=== PATIENT | male | born 2000 | race Caucasian/White ===

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

== ENCOUNTER 2018-04-19 17:21 | Emergency (ER) | payer OTHER ==
[~2018-04-19] VITALS: Ht 193 cm; Wt 113.4 kg
[~2018-04-19 17:21] MED LIST changes: +ACHD5005 PO; -HYDR-3812 PO
--- NOTE | 2018-04-19 18:04 | ED Lower Extremity ---
General Chief Complaint: Lower Extremity Stated Complaint: WC - L LEG MCL PAIN Nursing Triage Note: PT PRESENTS TO ER WITH COMPLAINT OF LEFT KNEE PAIN. PT STATES HE TWISTED KNEE AFTER WALKING AROUND A DESK. STATES HE HAS TORN HIS MCL BEFORE AND THE PAIN FEELS SIMILAR. Source: patient Exam Limitations: no limitations History of Present Illness Date Seen by Provider: Apr 19, 2018 Time Seen by Provider: 17:35 Initial Comments Patient is a 17 year old male who presents to the emergency room with reports of left knee pain. He states that he twisted his left knee at work after walking around a desk. he ahs had injury and repair to a MCL on the left knee in the past and he reports the pain is very similar. He ambulated to the exam room. Onset: just prior to arrival Pain/Injury Location: left knee Method of Injury: twisted Modifying Factors: Worse With Movement Allergies and Home Medications Allergies Coded Allergies: No Known Drug Allergies (Unverified , 04/15/15) Home Medications No Active Prescriptions or Reported Meds Patient Home Medication List Home Medication List Reviewed: Yes Review of Systems Constitutional: see HPI; No chills, No fever Musculoskeletal: see HPI, joint pain (left knee) All Other Systems Reviewed Negative Unless Noted: Yes Past Dmzooek-Cwkpma-Vjhxxz Hx Past Med/Social Hx: Reviewed Nursing Past Med/Soc Hx Patient Social History Alcohol Use: Occasionally Uses Recreational Drug Use: No Smoking Status: Never a Smoker 2nd Hand Smoke Exposure: No Recent Foreign Travel: No Contact w/Someone Who Travel: No Recent Infectious Disease Expo: No Recent Hopitalizations: No Ebola Symptoms: Denies Symptoms Listed Immunizations Up To Date Tetanus Booster (TDap): Less than 5yrs PED Vaccines UTD: Yes Seasonal Allergies Seasonal Allergies: No Past Medical History Surgeries: Yes (Left hand fx) Orthopedic Respiratory: No Cardiac: No Neurological: No Reproductive Disorders: No Gastrointestinal: No Musculoskeletal: Yes Fractures Endocrine: No Cancer: No Psychosocial: No Integumentary: No Blood Disorders: No Family Medical History Reviewed Nursing Family Hx No Pertinent Family Hx Physical Exam Vital Signs Vital Signs - First Documented 04/19/18 04/19/18 17:37 18:49 Temp 98.0 Pulse 100 Resp 20 B/P (MAP) 154/85 Pulse Ox 100 O2 Delivery Room Air Capillary Refill : Height, Weight, BMI Height: 6'4.00" Weight: 250lbs. oz. 113.712313mb; 28.12 BMI Method:Stated General Appearance: WD/WN, no apparent distress Cardiovascular: normal peripheral pulses, regular rate, rhythm, no edema, no gallop, no JVD, no murmur Respiratory: chest non-tender, lungs clear, normal breath sounds, no respiratory distress, no accessory muscle use Knees: left knee normal inspection, left knee normal range of motion, left knee no evidence of injury, left knee pain Neurologic/Tendon: normal sensation, normal motor functions, normal tendon functions Neurologic/Psychiatric: alert, normal mood/affect, oriented x 3 Progress/Results/Core Measures Results/Orders My Orders Orders - LUZ MARIA KOTHARI Knee, Left, 3 Views (04/19/18 17:41) Vital Signs/I&O 04/19/18 04/19/18 17:37 18:49 Temp 98.0 98.0 Pulse 100 100 Resp 20 20 B/P (MAP) 154/85 Pulse Ox 100 O2 Delivery Room Air Room Air Progress Progress Note : Time: 18:01 Progress Note I have seen and evaluated the patient. I have informed him of normal imaging studies. I have placed him in a knee immobilizer and on crutches until he follow up ortho to prevent further injury. He agrees with plans for care, follow up, and return precautions were given. Diagnostic Imaging Diagonstic Imaging: Xray Plain Films/CT/US/NM/MRI: knee Comments NAME: JOSE RAIN Jeffrey MED REC#: [id number] PT STATUS: REG ER : 2000 PHYSICIAN: LUZ MARIA KOTHARIP ADMIT DATE: 04/19/18/ER Draft Date of Exam:04/19/18 KNEE, LEFT, 3 VIEWS EXAM: KNEE, LEFT, 3 VIEWS INDICATION: Left knee pain. COMPARISON: None FINDINGS: There is no fracture or malalignment. Soft tissue shadows are unremarkable. No left ankle joint effusion. IMPRESSION: Negative left knee radiographs. Dictated on workstation # [id number] Dict: 04/19/18 1808 Trans: 04/19/18 [address] [facility] [id number] Interpreted by: CHLOÉ LAMBERT MD Electronically signed by: Reviewed: Reviewed by Me Departure Impression Primary Impression: Sprain of left knee Disposition: 01 HOME, SELF-CARE Condition: Stable/Unchanged Departure-Patient Inst. Decision time for Depature: 18:01 Referrals: GAETANO TIDWELL MD,ROSETTE Decker MD (PCP/Family) Primary Care Physician LUI FUENTES MD,RHONDA SHANE,JAJA JORDAN,GUILLAUME TOBIAS,HAILEY Byrd MD Patient Instructions: Knee Sprain (DC) Add. Discharge Instructions: You may use ibuprofen and Tylenol as directed by the bottle for pain relief. Wear the knee immobilizer follow-up with one of the doctors. You may use ice to the knee at 20 minute intervals. Use crutches as needed. Follow-up with one of the orthopedic surgeons that are listed within 1 week for recheck. Follow-up with primary care provider within 1 week for recheck. Return back to the emergency room for any worsening needed. All discharge instructions reviewed with patient and/or family. Voiced understanding. Scripts No Active Prescriptions or Reported Meds LUZ MARIA KOTHARI Apr 19, 2018 18:03
--- NOTE | 2018-04-19 18:11 | Diagnostic Imaging Report ---
EXAM: KNEE, LEFT, 3 VIEWS INDICATION: Left knee pain. COMPARISON: None FINDINGS: There is no fracture or malalignment. Soft tissue shadows are unremarkable. No left ankle joint effusion. IMPRESSION: Negative left knee radiographs. Dictated by: Dictated on workstation # [id number]
== END 2018-04-19 18:49 | disposition home or self-care (01) ==
LOC: EDUNIT# 17:21 → ER 17:22
DX: S83.92XA Sprain of unspecified site of left knee, initial encounter (principal); X50.0XXA Overexertion from strenuous movement or load, initial encounter
CPT/HCPCS: 73562

== ENCOUNTER 2023-06-06 06:27 | Day surgery (SDC) | payer BC, OTHER ==
[~2023-06-06] VITALS: Ht 185.5 cm; Wt 132.5 kg
[2023-06-06] VITALS (9 sets, daily range): BP systolic 119–143; BP diastolic 62–86
[2023-06-06] MEDS ORDERED: ONDANSETRON INJECTION 4 MG/2 ML (SDV) IVP ONE (07:15)
[2023-06-06] MEDS ORDERED: fentaNYL INJECTION 100 MCG/2 ML VIAL IVP ONE (07:15)
[2023-06-06 07:20] LABS: BASOPHILS % (AUTO) 0 % (0-10); EOSINOPHILS # (AUTO) 0.1 10^3/uL (0.0-0.3); EOSINOPHILS % (AUTO) 0 % (0-10); HEMATOCRIT 48 % (40-54); HEMOGLOBIN 16.2 g/dL (13.3-17.7); LYMPHOCYTES # (AUTO) 0.3 10^3/uL (1.0-4.0); LYMPHOCYTES % (AUTO) 1 % (12-44); MEAN CORPUSCULAR HEMOGLOBIN 29 pg (25-34); MEAN CORPUSCULAR HGB CONC 34 g/dL (32-36); MEAN CORPUSCULAR VOLUME 87 fL (80-99); MEAN PLATELET VOLUME 10.7 fL (9.0-12.2); MONOCYTES # (AUTO) 0.7 10^3/uL (0.0-1.0); MONOCYTES % (AUTO) 3 % (0-12); NEUTROPHILS # (AUTO) 21.7 10^3/uL (1.8-7.8); NEUTROPHILS % (AUTO) 95 % (42-75); PLATELET COUNT 229 10^3/uL (130-400); WHITE BLOOD COUNT 22.9 10^3/uL (4.3-11.0)
--- NOTE | 2023-06-06 07:20 | ED Abdominal Pain ---
General Chief Complaint: Abdominal/GI Problems Stated Complaint: RT SIDE PX Nursing Triage Note: ARRIVED VIA AMB TO ROOM 06 WITH COMPLAINTS OF RIGHT LOWER ABD PAIN. VOMITING STARTED YESTERDAY THEN PAIN THRUOUT THE NIGHT. Source of Information: Patient Exam Limitations: No Limitations History of Present Illness Date Seen by Provider: Jun 06, 2023 Time Seen by Provider: 06:47 Initial Comments This 22-year-old young man is presenting to the emergency room by private vehicle with concerns about intense right lower quadrant pain radiating to other areas of the abdomen. Pain abruptly started yesterday evening and became severe this morning. He has additionally been vomiting. It is painful to move, walk, and breathe. He retains his appendix. He has noted no urinary symptoms. He has no history of ureteral stones. He denies fever. He is in notable distress during my exam from significant pain. Allergies and Home Medications Allergies Coded Allergies: No Known Drug Allergies (Unverified , 04/15/15) Patient Home Medication List Home Medication List Reviewed: Yes Review of Systems Review of Systems Constitutional: no symptoms reported EENTM: No Symptoms Reported Respiratory: See HPI Cardiovascular: No Symptoms Reported Gastrointestinal: See HPI Genitourinary: No Symptoms Reported Musculoskeletal: no symptoms reported Skin: no symptoms reported Psychiatric/Neurological: No Symptoms Reported Endocrine: No Symptoms Reported Hematologic/Lymphatic: No Symptoms Reported Past Oszzncb-Fmfyzt-Kodtre Hx Patient Social History Tobacco Use?: No Substance use?: No Alcohol Use?: No Immunizations Up To Date Tetanus Booster (TDap): Less than 5yrs PED Vaccines UTD: Yes Seasonal Allergies Seasonal Allergies: No Past Medical History Surgeries: Yes (Left hand fx) Orthopedic Respiratory: No Cardiac: No Neurological: No Reproductive Disorders: No Gastrointestinal: No Musculoskeletal: Yes Fractures Endocrine: No HEENT: No Cancer: No Psychosocial: No Integumentary: No Blood Disorders: No Family Medical History No Pertinent Family Hx Physical Exam Vital Signs Capillary Refill : Height/Weight/BMI Height: 6'4.00" Weight: 250lbs. oz. [id number]; 34.00 BMI Method:Stated General Appearance: WD/WN, mild distress, obese HEENT: normal ENT inspection Neck: normal inspection Respiratory: lungs clear, normal breath sounds, no respiratory distress Cardiovascular: no edema, no murmur, tachycardia Gastrointestinal: normal bowel sounds, soft, tenderness (Moderate to severe tenderness in the right lower quadrant. More moderate tenderness in the other areas of the abdomen.) Extremities: normal inspection, no pedal edema Neurologic/Psychiatric: no motor/sensory deficits, alert, normal mood/affect, oriented x 3 Skin: normal color, warm/dry Progress/Results/Core Measures Results/Orders Lab Results Laboratory Tests Test 06/06/23 07:00 Range/Units White Blood Count 22.9 H 4.3-11.0 10^3/uL Red Blood Count 5.51 4.30-5.52 10^6/uL Hemoglobin 16.2 13.3-17.7 g/dL Hematocrit 48 40-54 % Mean Corpuscular Volume 87 80-99 fL Mean Corpuscular Hemoglobin 29 25-34 pg Mean Corpuscular Hemoglobin Concent 34 32-36 g/dL Red Cell Distribution Width 13.0 10.0-14.5 % Platelet Count 229 130-400 10^3/uL Mean Platelet Volume 10.7 9.0-12.2 fL Immature Granulocyte % (Auto) 0 % Neutrophils (%) (Auto) 95 H 42-75 % Lymphocytes (%) (Auto) 1 L 12-44 % Monocytes (%) (Auto) 3 0-12 % Eosinophils (%) (Auto) 0 0-10 % Basophils (%) (Auto) 0 0-10 % Neutrophils # (Auto) 21.7 H 1.8-7.8 10^3/uL Lymphocytes # (Auto) 0.3 L 1.0-4.0 10^3/uL Monocytes # (Auto) 0.7 0.0-1.0 10^3/uL Eosinophils # (Auto) 0.1 0.0-0.3 10^3/uL Basophils # (Auto) 0.0 0.0-0.1 10^3/uL Immature Granulocyte # (Auto) 0.1 0.0-0.1 10^3/uL Neutrophils % (Manual) 91 % Monocytes % (Manual) 1 % Metamyelocytes % 1 % Band Neutrophils 7 % Blood Morphology Comment NORMAL Sodium Level 139 135-145 MMOL/L Potassium Level 3.6 3.6-5.0 MMOL/L Chloride Level 103 98-107 MMOL/L Carbon Dioxide Level 20 L 21-32 MMOL/L Anion Gap 16 H 5-14 MMOL/L Blood Urea Nitrogen 11 7-18 MG/DL Creatinine 1.21 0.60-1.30 MG/DL Estimat Glomerular Filtration Rate 86 BUN/Creatinine Ratio 9 Glucose Level 183 H 70-105 MG/DL Calcium Level 10.0 8.5-10.1 MG/DL Corrected Calcium 8.5-10.1 MG/DL Total Bilirubin 2.0 H 0.1-1.0 MG/DL Aspartate Amino Transf (AST/SGOT) 23 5-34 U/L Alanine Aminotransferase (ALT/SGPT) 17 0-55 U/L Alkaline Phosphatase 64 40-136 U/L Total Protein 8.7 H 6.4-8.2 GM/DL Albumin 4.6 H 3.2-4.5 GM/DL My Orders Orders - PETRA EMERSON MD Ua Culture If Indicated (06/06/23 06:47) Cbc And Automated Diff (06/06/23 07:07) Comprehensive Metabolic Panel (06/06/23 07:07) Fentanyl Injection (Fentanyl Injection (06/06/23 07:15) Ondansetron Injection (Ondansetron Inj (06/06/23 07:15) Manual Differential (06/06/23 07:00) Promethazine Injection (Promethazine I (06/06/23 08:00) Morphine Injection (Morphine Injection (06/06/23 08:09) Ed Iv/Invasive Line Start (06/06/23 08:09) Lactated Ringers 1,000 Ml (Lactated Ring (06/06/23 08:15) Ekg Tracing (06/06/23 08:23) Morphine Injection (Morphine Injection (06/06/23 08:24) Ct Abdomen/Pelvis W (06/06/23 08:24) Iohexol Injection (Omnipaque 350 Mg/Ml 1 (06/06/23 08:45) Received Contrast (Hold Metformin- Contr (06/06/23 08:45) Ns (Ivpb) 100 Ml (Sodium Chloride 0.9% 1 (06/06/23 08:45) Scopolamine Patch (Scopolamine Patch) (06/06/23 10:15) Lactated Ringers 1,000 Ml (Lactated Ring (06/06/23 10:15) Medications Given in ED Current Medications Medications Dose Ordered Sig/Rita Route Start Time Stop Time Status Last Admin Dose Admin Iohexol 100 ml ONCE ONCE IV 06/06/23 08:45 06/06/23 08:46 DC 06/06/23 08:53 100 ML Lactated Ringer's 1,000 ml @ 0 mls/hr Q0M ONCE IV 06/06/23 08:15 06/06/23 08:16 DC 06/06/23 08:13 1,000 MLS/HR Lactated Ringer's 1,000 ml @ 0 mls/hr Q0M PRN IV 06/06/23 10:15 06/06/23 13:49 0 MLS/HR Morphine Sulfate ONCE ONCE IVP 06/06/23 10:15 06/06/23 10:23 DC 06/06/23 14:54 5 MG Promethazine HCl 25 mg ONCE ONCE IVP 06/06/23 08:00 06/06/23 08:01 DC 06/06/23 07:59 25 MG Scopolamine 1.5 mg ONCE ONCE TD 06/06/23 10:15 06/06/23 10:16 DC 06/06/23 10:20 1.5 MG Sodium Chloride 100 ml ONCE ONCE IV 06/06/23 08:45 06/06/23 08:46 DC 06/06/23 08:53 80 ML Progress Progress Note : Time: 10:00 Progress Note Patient was initially suspected of having a ureteral stone based on the intensity of his pain. He was treated with fentanyl and morphine. A second dose of morphine has been administered for uncontrolled pain. He was treated with Zofran and Phenergan for nausea. Nausea still present and will be treated with scopolamine patch. CT of the abdomen pelvis with contrast was obtained. By my interpretation there was acute appendicitis with enlarged appendix, stranding of nearby tissue, and scant fluid collection along the appendix. Radiologist's report was reviewed. By report there was no evidence of abscess or perforation. Dr. Leon, surgeon on-call, has been contacted. He presented to the emergency room to personally evaluate the patient. He anticipates taking the patient to the OR within the next few hours. Patient has been hydrated with a liter of fluid. We will continue to monitor his symptoms and give him supportive care. There was a brief note of a narrow complex tachycardia on the monitor by nursing staff. Unfortunately, this was not captured for my review or documentation. Patient has no history of arrhythmias or tachycardias. I did notify Dr. Murrieta, director digital sales on-call. He is not consulted on this case but was made aware of the issue should something recur during the course of his care. Labs were obtained, reviewed, and interpreted by me in their entirety. CBC was notable for leukocytosis of 22.9. CMP was notable for glucose of 183 and bilirubin of 2.0. Clinical significance of these labs is not likely significant. There were no other clinically relevant abnormalities on the CMP. Initial ECG Impression Date: Jun 06, 2023 Initial ECG Impression Time: 08:25 Initial ECG Rate: 112 Initial ECG Rhythm: S.Tach Comment Sinus tachycardia with no ST elevation or depression. No definite abnormal intervals or axis deviation. Diagnostic Imaging Diagonstic Imaging: CT Plain Films/CT/US/NM/MRI: abdomen, pelvis Comments NAME: JOSE RAIN Jeffrey MED REC#: [id number] [place]US[place] [facility] [place] 2000 PHYSICIAN: PETRA EMERSON MD ADMIT DATE: 06/06/23 Signed Date of Exam:06/06/23 CT ABDOMEN/PELVIS W PROCEDURE: CT abdomen and pelvis with contrast. TECHNIQUE: Multiple contiguous axial images were obtained through the abdomen and pelvis after administration of intravenous contrast. Auto Exposure Controls were utilized during the CT exam to meet ALARA standards for radiation dose reduction. All CT scans use one or more of the following dose optimizing techniques: automated exposure control, MA and/or KvP adjustment based on patient size and exam type or iterative reconstruction. INDICATION: Abdominal pain and elevated white blood cell count. No prior studies are available for comparison. Lung bases are clear. Liver and gallbladder are unremarkable. There is no biliary duct dilatation. Pancreas and spleen are unremarkable. No adrenal mass is identified. Kidneys are unremarkable. Aorta is nonaneurysmal. The appendix is dilated and thick-walled. There is periappendiceal inflammation as well as some trace fluid in the right lower quadrant and features are consistent with acute appendicitis. No abscess formation or bowel obstruction is identified. The bladder and prostate are unremarkable. There is a small fat-containing umbilical hernia. IMPRESSION: Features consistent with acute appendicitis. No abscess formation or bowel obstruction is identified. Dictated by: Dictated on workstation # [id number] Dict: 06/06/23 0856 Trans: 06/06/231642 [facility] [id number] Interpreted by: KANDICE MEAD MD Electronically signed by: KANDICE MEAD MD 06/06/231642 Departure Communication (Admissions) Time/Spoke to Admitting Phy: 09:22 Dr. Leon Impression Primary Impression: Acute appendicitis Qualified Codes: K35.200 - Acute appendicitis with generalized peritonitis, without perforation or abscess Additional Impression: Nausea & vomiting Qualified Codes: R11.2 - Nausea with vomiting, unspecified Disposition: ADMITTED INPATIENT Condition: Stable Admissions Decision to Admit Reason: Admit from ER (General) Decision to Admit/Date: Jun 06, 2023 Time/Decision to Admit Time: 09:22 Departure-Patient Inst. Referrals: NO,LOCAL PHYSICIAN (PCP/Family) Primary Care Physician PETRA EMERSON MD Jun 06, 2023 07:20
[2023-06-06 07:23] LABS: ALBUMIN 4.6 GM/DL (3.2-4.5); CHLORIDE 103 MMOL/L (98-107); POTASSIUM 3.6 MMOL/L (3.6-5.0); SODIUM 139 MMOL/L (135-145)
[2023-06-06 07:26] LABS: GLUCOSE 183 MG/DL (70-105); TOTAL PROTEIN 8.7 GM/DL (6.4-8.2)
[2023-06-06 07:27] LABS: CARBON DIOXIDE 20 MMOL/L (21-32)
[2023-06-06 07:29] LABS: ALKALINE PHOSPHATASE 64 U/L (40-136); CREATININE SERUM 1.21 MG/DL (0.60-1.30); GFR ESTIMATED 86
[2023-06-06 07:30] LABS: BUN/CREATININE RATIO 9
[2023-06-06 07:32] LABS: ALANINE AMINOTRANSFERASE 17 U/L (0-55)
[2023-06-06] MEDS ORDERED: PROMETHAZINE INJ 25 MG/ML VIAL IVP ONE (08:00)
[2023-06-06 08:02] LABS: BAND NEUTROPHILS 7 %; MONOCYTES % (MANUAL) 1 %; NEUTROPHILS % (MANUAL) 91 %
[2023-06-06 08:03] LABS: METAMYELOCYTES % 1 %; RBC MORPH NORMAL
[2023-06-06] MEDS ORDERED: morphine INJ 10 MG/ML 1ML (SYR OR VIAL) IVP STA ×2 (08:09→08:24)
[2023-06-06] MEDS ORDERED: LACTATED RINGERS 1,000 ML 1,000 ML IV ONE (08:15)
[2023-06-06] MEDS ORDERED: NS 100 ML (IVPB) BAG IV ONE (08:45)
[2023-06-06] MEDS ORDERED: IOHEXOL 350 MG/ML 100 ML (OMNIPAQUE 350) VIAL IV ONE (08:45)
[2023-06-06] MEDS ORDERED: HOLD METFORMIN - RECEIVED CONTRAST 20 ML VIAL IV SCH (08:45)
--- NOTE | 2023-06-06 09:12 | Diagnostic Imaging Report ---
PROCEDURE: CT abdomen and pelvis with contrast. TECHNIQUE: Multiple contiguous axial images were obtained through the abdomen and pelvis after administration of intravenous contrast. Auto Exposure Controls were utilized during the CT exam to meet ALARA standards for radiation dose reduction. All CT scans use one or more of the following dose optimizing techniques: automated exposure control, MA and/or KvP adjustment based on patient size and exam type or iterative reconstruction. INDICATION: Abdominal pain and elevated white blood cell count. No prior studies are available for comparison. Lung bases are clear. Liver and gallbladder are unremarkable. There is no biliary duct dilatation. Pancreas and spleen are unremarkable. No adrenal mass is identified. Kidneys are unremarkable. Aorta is nonaneurysmal. The appendix is dilated and thick-walled. There is periappendiceal inflammation as well as some trace fluid in the right lower quadrant and features are consistent with acute appendicitis. No abscess formation or bowel obstruction is identified. The bladder and prostate are unremarkable. There is a small fat-containing umbilical hernia. IMPRESSION: Features consistent with acute appendicitis. No abscess formation or bowel obstruction is identified. Dictated by: Dictated on workstation # [id number]
[2023-06-06] MEDS ORDERED: MIDAZOLAM INJ 2 MG/2 ML VIAL ONE (10:08)
[2023-06-06] MEDS ORDERED: dexAMETHasone INJ 10 MG/ML 1 ML VIAL ONE (10:08)
[2023-06-06] MEDS ORDERED: ONDANSETRON INJECTION 4 MG/2 ML (SDV) ONE (10:08)
[2023-06-06] MEDS ORDERED: LIDOCAINE PF 2% 5 ML VIAL ONE (10:08)
[2023-06-06] MEDS ORDERED: ROCURONIUM 50 MG/5 ML VIAL IV ONE (10:08)
[2023-06-06] MEDS ORDERED: fentaNYL INJECTION 100 MCG/2 ML VIAL ONE ×2 (10:08→14:05)
[2023-06-06] MEDS ORDERED: proPOfol INJECTION 200 MG/20 ML VIAL IV ONE (10:08)
[2023-06-06] MEDS ORDERED: MEPERIDINE INJ 50 MG/ML VIAL IVP ONE (10:15)
[2023-06-06] MEDS ORDERED: morphine INJ 10 MG/ML 1ML (SYR OR VIAL) IVP ONE (10:15)
[2023-06-06] MEDS ORDERED: HYDROmorphone INJECTION 2 MG/ML VIAL IV ONE (10:15)
[2023-06-06] MEDS ORDERED: SCOPOLAMINE 1.5 MG PATCH TD ONE (10:15)
[2023-06-06] MEDS ORDERED: ONDANSETRON INJECTION 4 MG/2 ML (SDV) IVP PRN (10:15)
[2023-06-06] MEDS ORDERED: LACTATED RINGERS 1,000 ML 1,000 ML IV PRN (10:15)
[2023-06-06] MEDS: LACTATED RINGERS 1,000 ML 1,000 ML IV PRN ×3 (10:22→13:49)
--- NOTE | 2023-06-06 10:40 | Consultation - Surgery ---
History of Present Illness History of Present Illness Patient Consulted On(jaclyn/time) 06/06/23 10:35 Time Seen by Provider: 09:31 History of Present Illness Surgery asked to consult regarding RLQ pain. HPI per ED: This 22-year-old young man is presenting to the emergency room by private vehicle with concerns about intense right lower quadrant pain radiating to other areas of the abdomen. Pain abruptly started yesterday evening and became severe this morning. He has additionally been vomiting. It is painful to move, walk, and breathe. He retains his appendix. He has noted no urinary symptoms. He has no history of ureteral stones. He denies fever. He is in notable distress during my exam from significant pain. When I saw the pt this am he looked to be in at least moderate distress, sitting at bedside possibly tachypnic. His stated he has been vomiting since the beginning of the week and complained of "rock in his stomach". The pain started yesterday and is 10 out of 10. He has received multiple doses of Morphine and they are barely touching the pain. It is a sharp stabbing pain, worse with movement and lying still helps a little. Allergies and Home Medications Allergies Coded Allergies: No Known Drug Allergies (Unverified , 04/15/15) Patient Home Medication List Home Medication List Reviewed: Yes Past Nqavtux-Kjyfip-Gpbptu Hx Patient Social History Smoking Status: Never a Smoker 2nd Hand Smoke Exposure: No Recent Hopitalizations: No Alcohol Use?: No Immunizations Up To Date Tetanus Booster (TDap): Less than 5yrs PED Vaccines UTD: Yes Seasonal Allergies Seasonal Allergies: No Surgeries History of Surgeries: Yes (Left hand fx) Surgeries: Orthopedic Respiratory History of Respiratory Disorde: No Cardiovascular History of Cardiac Disorders: No Neurological History of Neurological Disord: No Reproductive System Hx Reproductive Disorders: No Genitourinary History of Genitourinary Disor: No Gastrointestinal History of Gastrointestinal Di: No Musculoskeletal History of Musculoskeletal Dis: Yes Musculoskeletal Disorders: Fractures Endocrine History of Endocrine Disorders: No HEENT History of HEENT Disorders: No Loss of Vision: Denies Hearing Impairment: Denies Cancer History of Cancer: No Psychosocial History of Psychiatric Problem: No Integumentary History of Skin or Integumenta: No Blood Transfusions History of Blood Disorders: No Family Medical History Significant Family History: Other Conditions/Hx (Pt states his parents do not have DM, HTN, or CAD) Review of Systems-General Constitutional: No diaphoresis; malaise, weakness EENTM: No blurred vision, No double vision, No mouth swelling Respiratory: No cough, No dyspnea on exertion, No short of breath Cardiovascular: No chest pain, No palpitations Gastrointestinal: abdominal pain, diarrhea; No hematemesis; loss of appetite, nausea, vomiting Genitourinary: No dysuria, No frequency, No hematuria Musculoskeletal: No joint pain, No joint swelling, No muscle pain Skin: No change in color, No change in hair/nails Psychiatric/Neurological: Denies Anxiety, Denies Depressed, Denies Seizure, Denies Tremors Physical Exam-General Problems Physical Exam Vital Signs Capillary Refill : General Appearance: moderate distress, obese Eyes: Bilateral Eye PERRL, Bilateral Eye EOMI HEENT: pharynx normal; No scleral icterus (R), No scleral icterus (L) Neck: non-tender Respiratory: lungs clear, normal breath sounds, no respiratory distress, no accessory muscle use Cardiovascular: no murmur, tachycardia Gastrointestinal: soft, no organomegaly, guarding, rebound, tenderness (RUQ), hernia (small umbilical) Rectal: deferred Back: no CVA tenderness, no vertebral tenderness Extremities: no pedal edema, no calf tenderness 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, alert Skin: normal color, warm/dry Lymphatic: no adenopathy (neck, axilla or groin) Data Review Labs Laboratory Tests 06/06/23 07:00: White Blood Count 22.9H, Red Blood Count 5.51, Hemoglobin 16.2, Hematocrit 48, Mean Corpuscular Volume 87, Mean Corpuscular Hemoglobin 29, Mean Corpuscular Hemoglobin Concent 34, Red Cell Distribution Width 13.0, Platelet Count 229, Mean Platelet Volume 10.7, Immature Granulocyte % (Auto) 0, Neutrophils (%) (Auto) 95H, Lymphocytes (%) (Auto) 1L, Monocytes (%) (Auto) 3, Eosinophils (%) (Auto) 0, Basophils (%) (Auto) 0, Neutrophils # (Auto) 21.7H, Lymphocytes # (Auto) 0.3L, Monocytes # (Auto) 0.7, Eosinophils # (Auto) 0.1, Basophils # (Auto) 0.0, Immature Granulocyte # (Auto) 0.1, Neutrophils % (Manual) 91, Monocytes % (Manual) 1, Metamyelocytes % 1, Band Neutrophils 7, Blood Morphology Comment NORMAL, Sodium Level 139, Potassium Level 3.6, Chloride Level 103, Carbon Dioxide Level 20L, Anion Gap 16H, Blood Urea Nitrogen 11, Creatinine 1.21, Estimat Glomerular Filtration Rate 86, BUN/Creatinine Ratio 9, Glucose Le brian 183H, Calcium Level 10.0, Corrected Calcium , Total Bilirubin 2.0H, Aspartate Amino Transf (AST/SGOT) 23, Alanine Aminotransferase (ALT/SGPT) 17, Alkaline Phosphatase 64, Total Protein 8.7H, Albumin 4.6H Radiology Date of Exam:06/06/23 CT ABDOMEN/PELVIS W PROCEDURE: CT abdomen and pelvis with contrast. TECHNIQUE: Multiple contiguous axial images were obtained through the abdomen and pelvis after administration of intravenous contrast. Auto Exposure Controls were utilized during the CT exam to meet ALARA standards for radiation dose reduction. All CT scans use one or more of the following dose optimizing techniques: automated exposure control, MA and/or KvP adjustment based on patient size and exam type or iterative reconstruction. INDICATION: Abdominal pain and elevated white blood cell count. No prior studies are available for comparison. Lung bases are clear. Liver and gallbladder are unremarkable. There is no biliary duct dilatation. Pancreas and spleen are unremarkable. No adrenal mass is identified. Kidneys are unremarkable. Aorta is nonaneurysmal. The appendix is dilated and thick-walled. There is periappendiceal inflammation as well as some trace fluid in the right lower quadrant and features are consistent with acute appendicitis. No abscess formation or bowel obstruction is identified. The bladder and prostate are unremarkable. There is a small fat-containing umbilical hernia. IMPRESSION: Features consistent with acute appendicitis. No abscess formation or bowel obstruction is identified. Dictated on workstation # [id number] Dict: 06/06/23 0856 Trans: 06/06/23 0911 CV [id number] Interpreted by: KANDICE MEAD MD Assessment/Plan Assessment/Plan Assessment/Plan Acute Appendicitis I spoke with ER physician and reviewed the CT images myself; the appendix is very dilated and there appears to be a small amount of fluid near it. Pt will need surgery to remove this, I did give him the option of trying ABX and waiting but he stated he was in too much pain. He will get IV fluids, pain medications, anti-emetics as needed and IV ABX just prior to surgery start. I discussed the procedure with pt and his ; Laparoscopic appendectomy, possible open. We went over risks and complications not limited to pain, bleeding, infection, scar, damage to bowel and need for further procedure. All questions answered to their satisfaction. Will get consent and plan for surgery soon. YEIMI RUTLEDGE DO Jun 06, 2023 10:40
[2023-06-06 12:24] LABS: CLARITY,URINE CLEAR; COLOR,URINE YELLOW; GLUCOSE, URINE (UA) NEGATIVE (NEGATIVE); KETONES,URINE 1+ (NEGATIVE); NITRITE,URINE NEGATIVE (NEGATIVE); PH,URINE 5.5 (5-9); PROTEIN,URINE 2+ (NEGATIVE)
[2023-06-06 12:25] LABS: BACTERIA,URINE TRACE /HPF; BILIRUBIN,URINE 1+ (NEGATIVE); LEUKOCYTE ESTERASE ,URINE NEGATIVE (NEGATIVE); RBC,URINE RARE /HPF; SQUAMOUS EPITHELIAL CELL,UR 0-2 /HPF; WBC,URINE RARE /HPF
[2023-06-06] MEDS ORDERED: ceFAZolin INJECTION 3,000 MG in NS (IVPB) 100 ML 100 ML IV ONE (12:45)
[2023-06-06] MEDS ORDERED: LIDOCAINE 2% w/EPI 1:100,000 20 ML VIAL ONE (12:50)
[2023-06-06] MEDS ORDERED: LIDOCAINE 2% w/EPI 1:100,000 20 ML VIAL INJ ONE (13:32)
[2023-06-06] MEDS ORDERED: GLYCOPYRROLATE INJ 0.2 MG/ML 2 ML VIAL ONE (14:08)
[2023-06-06] MEDS ORDERED: NEOSTIGMINE 1 MG/1ML 10 ML VIAL ONE (14:08)
[2023-06-06] MEDS ORDERED: morphine INJ 10 MG/ML 1ML (SYR OR VIAL) ONE (14:47)
--- NOTE | 2023-06-06 14:51 | Progress Note-Post Operative ---
Post-Operative Progess Note Surgeon (s)/Sports Medicine Coordinator (s) Surgeon YEIMI RUTLEDGE DO Sports Medicine Coordinator: RITIKA Cloud Pre-Operative Diagnosis Acute Appendicitis Post-Operative Diagnosis Ruptured Appendicitis Intra-abdominal abscess Procedure & Operative Findings Date of Procedure 06/06/23 Procedure Performed/Findings Laparoscopic Appendectomy Washout of Abdomen and placement of drain COMPLICATIONS: None. INDICATIONS: The patient is a 22 year old male who has been having right lower quadrant abdominal pain. Patient's exam consistent with appendicitis. I discussed risk and benefits of laparoscopic appendectomy and all indicated procedures with the possibility being a normal appendix. The patient understands the risks and benefits and wishes to proceed. Consent was signed on the chart. DESCRIPTION OF PROCEDURE: The patient was taken to the operating suite, prepped and draped in a sterile fashion. Timeout was performed. Local anesthetic was infiltrated just above the umbilicus and 11-blade scalpel was used to make a skin incision. Cautery was used to dissect down to the fascia and scored. Kochers were used to grasp and elevate it and the abdomen was then entered. An 0 Vicryl was placed in a [id number] fashion for closure at the end of the case. The balloon trocar was inserted into the abdomen and pneumoperitoneum was achieved. Under direct visualization of the laparoscope, a 5 mm trocar was placed in the suprapubic region and a 5 mm trocar was placed in the left lower quadrant. Immediately upon entering noted purulent fluid, nothing feculent. Appendix was located,it was inflamed and thickened but did not appear to have a perforation. Started coming across the mesoappendix with the Ligasure until I was down at the base of the appendix. Once at the base an Endo-DEEP 2.5 stapler was then fired and the appendix was then placed in an Endobag and removed through the 12 mm trocar site. I then ran the small bowel to make sure there was not a Meckel's diverticulitis. I looked at the Sigmoid colon, the gallbladder and the stomach. I could not find any other source for the purulent fluid. The fluid was all over the abdomen and I suctioned out appx 500ml of fluid. In fact, almost all of the peritoneum was inflammed. I then irrigated with almost 4L of normal saline and suctioned it out. I elected to place a 19French gale drain through the 12mm trocar port and pulled the end out of the suprapubic incision. It was sutured in place with 3-0 Nylon. The abdomen was then desufflated and the trocars were removed. The 0 Vicryl placed at the beginning of the case was then tied closing the 12 mm fascial defect. The skin was then closed using 4-0 Monocryl in a subcuticular fashion. The abdomen was then washed and dried and Skin Affix was placed over the incisions. Drain sponge placed around the drain. The patient tolerated the procedure well without any complications and was taken to the recovery room in stable condition. Anesthesia Type GET Estimated Blood Loss Estimated blood loss (mL): scant Specimens/Packing Specimens Removed YEIMI Desai DO Jun 06, 2023 14:51
[2023-06-06] MEDS ORDERED: PIPERACILLIN/Tazobactam 4.5 GM in NS (IVPB) 100 ML 100 ML IV ONE (16:00)
[2023-06-06] MEDS: LACTATED RINGERS 1,000 ML 1,000 ML IV SCH ×2 (16:15→23:58)
[2023-06-06] MEDS: HYDROcodone/ACETAMINOPHEN 10/325 TABLET PO PRN (19:44)
[2023-06-06] MEDS: IBUPROFEN 800 MG TABLET PO PRN (22:13)
[2023-06-06] MEDS: PIPERACILLIN/Tazobactam 4.5 GM in NS (IVPB) 100 ML 100 ML IV SCH (22:17)
[2023-06-07 05:00] VITALS: BP 122/57
[2023-06-07] MEDS: PIPERACILLIN/Tazobactam 4.5 GM in NS (IVPB) 100 ML 100 ML IV SCH ×3 (05:19→21:48)
[2023-06-07] MEDS: LACTATED RINGERS 1,000 ML 1,000 ML IV SCH ×4 (05:19→23:48)
[2023-06-07 07:35] VITALS: BP 128/58
[2023-06-07] MEDS: HYDROcodone/ACETAMINOPHEN 10/325 TABLET PO PRN ×2 (08:34→17:43)
[2023-06-07] MEDS: PANTOPRAZOLE INJECTION 40 MG VIAL IVP SCH (08:34)
--- NOTE | 2023-06-07 10:43 | Progress Note - Surgery ---
STEPHANIE VELA 06/07/23 1043: Subjective Date Seen by a Provider: Jun 07, 2023 Time Seen by a Provider: 10:45 Subjective/Events-last exam Michael Santiago is feeling good this morning. He did have an episode where he felt feverish last night but it quickly passed and he hasn't felt feverish since. His pain he rates a 1/10 and well controlled on oral pain medications. He does have sharp pain when he coughs that causes sharp 6/10 pain. He is tolerating clears well and has had a cup of chicken broth and 3 cups of water with no nausea, vomiting, nor abdominal distention. He has been able to walk around his room and to the bathroom without any difficulty. He does have some persistent burning with urination that had not decreased in intensity since having the catheter removed. His ROSANNE drains have drained 110ml of serous fluid since surgery. He has not had a bowel movement nor passed gas since surgery. His incision look good with no surrounding erythema. Review of Systems General: No Chills, No Night Sweats, No Fatigue HEENT: No Head Aches, No Visual Changes, No Eye Pain Pulmonary: Dyspnea (due to some pain with deep inspiration ); No Cough Cardiovascular: No: Chest Pain, Palpitations Gastrointestinal: Abdominal Pain (over the incisionas and in the RLQ); No: Nausea, Vomiting Genitourinary: Dysuria, Frequency Objective Exam Vital Signs Date Time Temp Pulse Resp B/P (MAP) Pulse Ox O2 Delivery O2 Flow Rate FiO2 06/07/23 08:00 97 Room Air 2.00 06/07/23 07:35 36.4 93 18 128/58 (81) 95 Room Air 06/07/23 05:00 36.6 84 19 122/57 (78) 97 Nasal Cannula 06/06/23 23:58 36.9 06/06/23 23:56 36.9 111 19 119/71 (87) 97 Nasal Cannula 06/06/23 22:13 38.3 06/06/23 20:02 38.3 115 19 135/62 (86) 97 Nasal Cannula 2.00 06/06/23 19:30 97 Room Air 2.00 06/06/23 16:00 37.6 102 19 137/65 (89) 97 Room Air 06/06/23 15:53 97 Nasal Cannula 2.00 06/06/23 15:20 Nasal Cannula 2.00 06/06/23 15:10 37.3 27 128/78 (95) 96 Nasal Cannula 2.00 06/06/23 15:05 Nasal Cannula 2.00 06/06/23 15:00 28 143/80 (101) 99 OxyMask 10.00 06/06/23 14:50 28 141/80 (100) 98 OxyMask 10.00 06/06/23 14:50 OxyMask 10.00 06/06/23 14:40 28 139/86 (103) 100 OxyMask 10.00 06/06/23 14:35 OxyMask 10.00 06/06/23 14:30 22 134/80 (98) 100 OxyMask 10.00 06/06/23 14:20 36.3 21 127/72 (90) 100 OxyMask 10.00 06/06/23 14:20 OxyMask 10.00 06/06/23 12:54 123 16 133/94 96 Room Air I & O 06/07/23 07:00 Intake Total 3920 ml Output Total 610 ml Balance 3310 ml Capillary Refill : General Appearance: No Apparent Distress, WD/WN HEENT: PERRL/EOMI, Moist Mucous Membranes; No Pharyngeal Erythema Neck: Non Tender, Supple Respiratory: Lungs Clear, No Accessory Muscle Use, No Respiratory Distress Cardiovascular: Regular Rate, Rhythm, No Edema, No Murmur Peripheral Pulses: 3+ Dorsalis Pedis (R), 3+ Left Dors-Pedis (L), 3+ Radial Pulses (R), 3+ Radial Pulses (L) Gastrointestinal: normal bowel sounds, soft, tenderness (in the RLQ and soreness around incision sites. ) Extremity: No Pedal Edema Neurologic/Psychiatric: Alert, Oriented x3 Skin: Normal Color, Warm/Dry Lymphatic: No Adenopathy (cervical or supraclavicular) Results Lab Laboratory Tests 06/06/23 12:00: Urine Color YELLOW, Urine Clarity CLEAR, Urine pH 5.5, Urine Specific [place] 1.010L, Urine Protein 2+H, Urine Glucose (UA) NEGATIVE, Urine Ketones 1+H, Urine Nitrite NEGATIVE, Urine Bilirubin 1+H, Urine Urobilinogen 1.0, Urine Leukocyte Esterase NEGATIVE, Urine RBC (Auto) TRACEH, Urine RBC RARE, Urine WBC RARE, Urine Squamous Epithelial Cells 0-2, Urine Crystals NONE, Urine Bacteria TRACE, Urine Casts NONE, Urine Mucus SMALLH, Urine Culture Indicated NO Assessment/Plan Assessment/Plan Assessment/Plan Acute Appendicitis s/p laparascopic appendectomy POD#1 Dysuria Plan: Advance diet as tolerated Continue pain medications as needed encourage ambulation as tolerated YEIMI LEON DO 06/07/23 1414: Subjective Time Seen by a Provider: 12:54 Subjective/Events-last exam Pt seen and examined, looks much better than yesterday. He states he feels much better. Review of Systems Pulmonary: Dyspnea (due to some pain with deep inspiration ); No Cough Gastrointestinal: Abdominal Pain (over the incisionas and in the RLQ); No: Nausea, Vomiting Genitourinary: Dysuria, Frequency Objective Exam General Appearance: No Apparent Distress, WD/WN HEENT: PERRL/EOMI, Moist Mucous Membranes Respiratory: Lungs Clear, Normal Breath Sounds, No Accessory Muscle Use, No Respiratory Distress Cardiovascular: Regular Rate, Rhythm, No Murmur Gastrointestinal: soft, tenderness (in the RLQ and soreness around incision sites. ), other (Inc C/D/I, ROSANNE drain with serosanguinous drainage) Extremity: No Pedal Edema Neurologic/Psychiatric: Alert, Oriented x3 Skin: Normal Color, Warm/Dry Assessment/Plan Assessment/Plan Assessment/Plan S/P laparascopic appendectomy POD#1 for ruptured Appendicitis Dysuria Advance diet as tolerated, Continue pain medications as needed, encourage ambulation as tolerated Will send pt home with oral pain meds and oral ABX, f/u in my office in one week Supervisory-Addendum Brief Verification & Attestation Participated in pt care: history, MDM, physical Personally performed: exam, history, MDM, supervision of care Care discussed with: Medical Student Procedures: n/a Verification and Attestation of Medical Student E/M Service A medical student performed and documented this service. I then reviewed and verified all information documented by the medical student and made modifications to such information, when appropriate. I personally performed a physical exam, medical decision making and then discussed any differences between the notes and made revisions as necessary to create one note. Yeimi Leon , 06/07/23 , 14:14 STEPHANIE VELA Jun 07, 2023 10:43 YEIMI LEON DO Jun 07, 2023 14:14
[2023-06-07 11:21] VITALS: BP 131/69
[2023-06-07] MEDS: ONDANSETRON INJECTION 4 MG/2 ML (SDV) IVP PRN ×2 (13:39→19:46)
--- NOTE | 2023-06-07 14:10 | Anesthesia-General Post-Op ---
General Patient Condition Mental Status/LOC: Same as Preop Cardiovascular: Satisfactory Nausea/Vomiting: Absent Respiratory: Satisfactory Pain: Controlled Complications: Absent Post Op Complications Complications None Follow Up Care/Instructions Patient Instructions None needed. Anesthesia/Patient Condition Patient Condition Patient is doing well, no complaints, stable vital signs, no apparent adverse anesthesia problems. No complications reported per nursing. SLAVA SINGLETARY CRNA Jun 07, 2023 14:10
[2023-06-07] MEDS ORDERED: ACHYD1T PO (14:15)
[2023-06-07] MEDS ORDERED: AMOX-355 PO (14:15)
--- NOTE | 2023-06-07 14:17 | Discharge Inst-Surgical ---
Discharge Inst-Surgical Depart Medication/Instructions New, Converted or Re-Newed RX: Transmitted to Pharmacy Patient Instructions Follow up Appt: Make appointment for 1 week. [phone] Instructions: No lifting greater than 20 pounds. No strenuous activity. May shower in 24 hours, no tub bath or soaking. Use incentive spirometer at home as directed. No Smoking Skin/Wound Care: May remove bandages in am. You need to leave the Dermabond on incision it will fall off on it's own. Symptoms to Report: Appetite Changes, Extremity Discoloration, Numbness/Tingling, Swelling Increased, Bleeding Excessive, Eyesight Changes, Pain Increased, Urine Color Change, Constipation(Persistent), Fever over 101 degree F, Pain/Pressure in chest, Urinating Difficulty, Cough Up/Vomit Blood, Heart Beat Irreg/Pounding, Pain/Pressure in jaw, Cramps in feet or legs, Lightheadedness, Pain/Pressure in shoulder, Diarrhea(Persistent), Memory Changes Suddenly, Questions/Concerns, Weight gain consecutive days, Dizziness/Fainting, Nausea/Vomiting, Shortness of Breath, Weight gain over 2 pounds If questions or concerns contact your physician Or seek help at emergency department. Activity Activity as Tolerated: Yes Activity Instructions: Avoid Stress to Incision Driving Instructions: No Driving/Refer to Dr. Rodriguez Discharge Diet: No Restrictions Diet After 24 Hours: Clear Liquid if Nauseous If Any Problems/Questions/Issu: Contact Your Physician, Go to Emergency Room Skin/Wound Care Infection Signs and Symptoms: Increased Redness, Foul Odor of Wound, Increased Drainage, Skin Itchy or Has a Rash, Increased Swelling, Temperature Above 101 F Wound Care Comment: Care of ROSANNE drain Bathing Instructions: Shower Stitches/Analia/Dermabond Dis: Dermabond YIEMI RUTLEDGE DO Jun 07, 2023 14:16
[2023-06-07 15:30] VITALS: BP 130/70
[2023-06-07 19:56] VITALS: BP 136/74
[2023-06-07] MEDS ORDERED: PROMETHAZINE INJ 25 MG/ML VIAL IVP ONE (21:15)
[2023-06-07 23:27] VITALS: BP 114/77
[2023-06-08] MEDS: ONDANSETRON INJECTION 4 MG/2 ML (SDV) IVP PRN ×4 (01:38→19:16)
[2023-06-08 03:28] VITALS: BP 140/82
[2023-06-08] MEDS: HYDROcodone/ACETAMINOPHEN 10/325 TABLET PO PRN ×3 (03:41→13:13)
[2023-06-08 05:48] LABS: BASOPHILS % (AUTO) 0 % (0-10); EOSINOPHILS % (AUTO) 0 % (0-10); HEMATOCRIT 49 % (40-54); HEMOGLOBIN 16.4 g/dL (13.3-17.7); LYMPHOCYTES # (AUTO) 1.2 10^3/uL (1.0-4.0); LYMPHOCYTES % (AUTO) 7 % (12-44); MEAN CORPUSCULAR HEMOGLOBIN 29 pg (25-34); MEAN CORPUSCULAR HGB CONC 34 g/dL (32-36); MEAN CORPUSCULAR VOLUME 87 fL (80-99); MEAN PLATELET VOLUME 10.8 fL (9.0-12.2); MONOCYTES # (AUTO) 0.8 10^3/uL (0.0-1.0); MONOCYTES % (AUTO) 5 % (0-12); NEUTROPHILS # (AUTO) 14.3 10^3/uL (1.8-7.8); NEUTROPHILS % (AUTO) 87 % (42-75); PLATELET COUNT 221 10^3/uL (130-400); WHITE BLOOD COUNT 16.4 10^3/uL (4.3-11.0)
[2023-06-08] MEDS: PIPERACILLIN/Tazobactam 4.5 GM in NS (IVPB) 100 ML 100 ML IV SCH ×3 (05:52→21:34)
[2023-06-08] MEDS: LACTATED RINGERS 1,000 ML 1,000 ML IV SCH ×4 (05:52→20:55)
[2023-06-08 06:10] LABS: ALBUMIN 3.3 GM/DL (3.2-4.5); BILIRUBIN,TOTAL 1.3 MG/DL (0.1-1.0); CALCIUM 9.1 MG/DL (8.5-10.1); CREATININE SERUM 0.96 MG/DL (0.60-1.30); POTASSIUM 3.5 MMOL/L (3.6-5.0); TOTAL PROTEIN 7.1 GM/DL (6.4-8.2)
[2023-06-08 07:29] VITALS: BP 116/76
[2023-06-08] MEDS: PANTOPRAZOLE INJECTION 40 MG VIAL IVP SCH (08:52)
[2023-06-08 12:23] VITALS: BP 120/78
--- NOTE | 2023-06-08 13:46 | Progress Note - Surgery ---
Subjective Time Seen by a Provider: 13:37 Subjective/Events-last exam Pt seen and examined, events of last night noted. Pt was kept overnight because he began having intractable nauesea and vomiting; not controlled with Zofran. He states he had an episode of emesis today and that whenever he moves he gets nauseous and vomits. He only has minimal abdominal pain and is not really able to eat; however, he can "nibble on crackers feels better and small sips". Review of Systems General: Fatigue Pulmonary: No Dyspnea, No Cough Cardiovascular: No: Chest Pain, Palpitations Gastrointestinal: Nausea, Vomiting, Abdominal Pain (very minimal) Objective Exam Vital Signs Date Time Temp Pulse Resp B/P (MAP) Pulse Ox O2 Delivery O2 Flow Rate FiO2 06/08/23 12:23 36.8 100 18 120/78 (92) 97 Room Air 06/08/23 08:00 97 Room Air 2.00 06/08/23 07:29 36.5 105 16 116/76 (89) 95 Room Air 06/08/23 03:28 37.0 98 16 140/82 (101) 97 Room Air 06/07/23 23:27 37.1 92 20 114/77 (89) 97 Room Air 06/07/23 20:00 97 Room Air 2.00 06/07/23 19:56 36.7 89 20 136/74 (94) 95 Room Air 06/07/23 15:30 37.0 116 20 130/70 (90) 94 Room Air I & O 06/08/23 07:00 Intake Total 1840 ml Output Total 325 ml Balance 1515 ml Capillary Refill : General Appearance: No Apparent Distress, WD/WN HEENT: PERRL/EOMI, Moist Mucous Membranes Respiratory: Lungs Clear, Normal Breath Sounds, No Accessory Muscle Use, No Respiratory Distress Cardiovascular: Regular Rate, Rhythm, No Murmur Peripheral Pulses: 3+ Dorsalis Pedis (R), 3+ Left Dors-Pedis (L), 3+ Radial Pulses (R), 3+ Radial Pulses (L) Gastrointestinal: soft, tenderness (in the RLQ and soreness around incision sites. ), other (Inc C/D/I, ROSANNE drain with scant sanguinous drainage) Extremity: No Pedal Edema Neurologic/Psychiatric: Alert, Oriented x3 Results Lab Laboratory Tests 06/08/23 05:41: White Blood Count 16.4H, Red Blood Count 5.59H, Hemoglobin 16.4, Hematocrit 49, Mean Corpuscular Volume 87, Mean Corpuscular Hemoglobin 29, Mean Corpuscular Hemoglobin Concent 34, Red Cell Distribution Width 13.3, Platelet Count 221, Mean Platelet Volume 10.8, Immature Granulocyte % (Auto) 0, Neutrophils (%) (Auto) 87H, Lymphocytes (%) (Auto) 7L, Monocytes (%) (Auto) 5, Eosinophils (%) (Auto) 0, Basophils (%) (Auto) 0, Neutrophils # (Auto) 14.3H, Lymphocytes # (Auto) 1.2, Monocytes # (Auto) 0.8, Eosinophils # (Auto) 0.0, Basophils # (Auto) 0.0, Immature Granulocyte # (Auto) 0.1, Sodium Level 136, Potassium Level 3.5L, Chloride Level 103, Carbon Dioxide Level 19L, Anion Gap 14, Blood Urea Nitrogen 14, Creatinine 0.96, Estimat Glomerular Filtration Rate 113, BUN/Creatinine Ratio 15, Glucose Level 136H, Calcium Level 9.1, Corrected Calcium 9.7, Total Bilirubin 1.3H, Aspartate Amino Transf (AST/SGOT) 21, Alanine Aminotransferase (ALT/SGPT) 13, Alkaline Phosphatase 47, Total Protein 7.1, Albumin 3.3 Assessment/Plan Assessment/Plan Assessment/Plan Intractable Nausea and Vomiting S/P laparascopic appendectomy POD#2 for ruptured Appendicitis Advance diet as tolerated, Continue pain medications as needed, encourage ambulation as tolerated and IS use Pt was not sent home because of the N/V. We restarted IV fluids, continue Zofran as needed. He is still on IV ABX. Will keep one more day to make sure the N/V improves. YEIMI RUTLEDGE DO Jun 08, 2023 13:46
[2023-06-08 16:56] VITALS: BP 118/86
[2023-06-08 19:17] VITALS: BP 121/64
[2023-06-08 23:39] VITALS: BP 144/63
[2023-06-09] MEDS: ONDANSETRON INJECTION 4 MG/2 ML (SDV) IVP PRN ×2 (01:38→08:26)
[2023-06-09] MEDS: HYDROcodone/ACETAMINOPHEN 10/325 TABLET PO PRN ×2 (01:39→08:26)
[2023-06-09 03:39] VITALS: BP 134/74
[2023-06-09] MEDS: LACTATED RINGERS 1,000 ML 1,000 ML IV SCH (03:39)
[2023-06-09] MEDS: PIPERACILLIN/Tazobactam 4.5 GM in NS (IVPB) 100 ML 100 ML IV SCH (05:59)
[2023-06-09 07:26] VITALS: BP 118/81
[2023-06-09] MEDS: PANTOPRAZOLE INJECTION 40 MG VIAL IVP SCH (08:19)
[2023-06-09] MEDS: IBUPROFEN 800 MG TABLET PO PRN (08:26)
--- NOTE | 2023-06-09 08:38 | Progress Note - Surgery ---
ZION MILLER 06/09/23 0838: Subjective Date Seen by a Provider: Jun 09, 2023 Time Seen by a Provider: 08:20 Subjective/Events-last exam Michael Santiago is feeling better this morning than yesterday. He continues to have nausea and one episode of emesis last evening after eating a few crackers, but he tolerated a bowl of soup. He is able to sit up and walk to the bathroom with less nausea than yesterday. He is feeling "gassy" but otherwise his abdominal pain is well controlled with pain medication. His incision has no erythema. Review of Systems General: No Chills, No Night Sweats HEENT: Head Aches Pulmonary: Dyspnea; No Cough Cardiovascular: No: Chest Pain Gastrointestinal: Nausea (improved from yesterday), Vomiting (one episode last night); No: Abdominal Pain, Diarrhea Objective Exam Vital Signs Date Time Temp Pulse Resp B/P (MAP) Pulse Ox O2 Delivery O2 Flow Rate FiO2 06/09/23 07:26 36.0 102 16 118/81 (93) Room Air 06/09/23 03:39 36.3 102 20 134/74 (94) 94 Room Air 06/08/23 23:39 36.9 115 18 144/63 (90) 94 Room Air 06/08/23 19:25 95 Room Air 06/08/23 19:17 36.7 103 18 121/64 (83) 95 Room Air 06/08/23 16:56 36.4 96 18 118/86 (97) 98 Room Air 06/08/23 12:23 36.8 100 18 120/78 (92) 97 Room Air I & O 06/09/23 07:00 Intake Total 2890 ml Output Total 267 ml Balance 2623 ml Capillary Refill : General Appearance: No Apparent Distress, WD/WN HEENT: PERRL/EOMI, Moist Mucous Membranes Neck: Non Tender, Supple Respiratory: Lungs Clear, Normal Breath Sounds Cardiovascular: Regular Rate, Rhythm, No Murmur Peripheral Pulses: 3+ Dorsalis Pedis (R), 3+ Left Dors-Pedis (L), 3+ Radial Pulses (R), 3+ Radial Pulses (L) Gastrointestinal: non tender, soft, other (Inc C/D/I) Neurologic/Psychiatric: Alert, Oriented x3 Skin: Normal Color, Warm/Dry Assessment/Plan Assessment/Plan Assessment/Plan Intractable Nausea and Vomiting S/P laparascopic appendectomy POD#2 for ruptured Appendicitis Advance diet as tolerated, Continue pain medications as needed, encourage ambulation as tolerated Continue Zofran as needed YEIMI LEON DO 06/09/23 1130: Subjective Time Seen by a Provider: 11:22 Subjective/Events-last exam Pt seen and examined, states he is doing better than yesterday and wants to go home. Tolerating diet. Review of Systems General: No Chills, No Night Sweats HEENT: Head Aches Pulmonary: Dyspnea; No Cough Cardiovascular: No: Chest Pain Gastrointestinal: Nausea (improved from yesterday), Vomiting (one episode last night); No: Abdominal Pain, Diarrhea Objective Exam General Appearance: No Apparent Distress, WD/WN HEENT: PERRL/EOMI, Pale Conjunctivae (L) Respiratory: Lungs Clear, Normal Breath Sounds, No Accessory Muscle Use, No Respiratory Distress Cardiovascular: Regular Rate, Rhythm, No Murmur Gastrointestinal: non tender, soft, other (Inc C/D/I, ROSANNE minimal serous fluid) Neurologic/Psychiatric: Alert, Oriented x3 Skin: Normal Color, Warm/Dry Assessment/Plan Assessment/Plan Assessment/Plan Intractable Nausea and Vomiting - improved S/P laparascopic appendectomy POD#3 for ruptured Appendicitis Pt is ok to go home, advance diet as tolerated, Continue pain medications as needed, encourage ambulation and IS use. Will get oral ABX, will also add a Zofran Rx for home Supervisory-Addendum Brief Verification & Attestation Participated in pt care: history, MDM, physical Personally performed: exam, history, MDM, supervision of care Care discussed with: Medical Student Procedures: n/a Verification and Attestation of Medical Student E/M Service A medical student performed and documented this service. I then reviewed and verified all information documented by the medical student and made modifications to such information, when appropriate. I personally performed a physical exam, medical decision making and then discussed any differences between the notes and made revisions as necessary to create one note. Yeimi Leon , 06/09/23 , 11:30 ZION MILLER Jun 09, 2023 08:38 YEIMI LEON DO Jun 09, 2023 11:30
[2023-06-09 11:15] VITALS: BP_SYST 139; BP_SYST 172; BP_DIAS 76; BP_DIAS 82
[2023-06-09] MEDS ORDERED: ONDA4TAB11 SL (11:30)
[2023-06-09 12:46] VITALS: BP 139/76
== END 2023-06-09 12:49 | disposition home or self-care (01) ==
LOC: EDUNIT# 06:27 → ER 06:33 → SDC 11:30 → 4TH 15:41 → SDC 06-09 12:49
PROVIDERS: ATTEND Surgery
DX: K35.33 Acute appendicitis with perforation, localized peritonitis, and gangrene, with abscess (principal); R30.0 Dysuria; R11.2 Nausea with vomiting, unspecified; E66.9 Obesity, unspecified; Z68.38 Body mass index [BMI] 38.0-38.9, adult
CPT/HCPCS: 36415; 74177; 80053; 81000; 85007; 85027; 93005; 96361; 96374; 96375; 96376; G0378